=== PATIENT | male | born 1975 | race African-American/Black ===

== ENCOUNTER 2021-12-26 19:49 | Emergency (ER) | payer MEDICARE, MEDICAID ==
[~2021-12-26] VITALS: Ht 180.3 cm; Wt 84.0 kg
[2021-12-26 20:04] VITALS: BP 103/67
[2021-12-27] MEDS ORDERED: IBUPROFEN 600MG TABLET PO STA (04:21)
[2021-12-27] MEDS ORDERED: NAPR-681 PO (05:44)
[2021-12-27] MEDS ORDERED: BO1 TP (05:44)
== END 2021-12-27 06:59 | disposition home or self-care (01) ==
LOC: ER 19:49
DX: S00.03XA Contusion of scalp, initial encounter (principal); S00.01XA Abrasion of scalp, initial encounter; S10.93XA Contusion of unspecified part of neck, initial encounter; S00.83XA Contusion of other part of head, initial encounter; Y04.0XXA Assault by unarmed brawl or fight, initial encounter; Y93.89 Activity, other specified; Y92.488 Other paved roadways as the place of occurrence of the external cause
CPT/HCPCS: 99283

== ENCOUNTER 2022-01-13 21:01 | Emergency (ER) | payer MEDICARE, MEDICAID ==
[~2022-01-13] VITALS: Ht 180.3 cm; Wt 82.0 kg
[~2022-01-13 21:01] MED LIST: BO1 TP; NAPR-681 PO
[2022-01-13 22:00] VITALS: BP 139/81
== END 2022-01-13 23:19 | disposition home or self-care (01) ==
LOC: ER 21:01
DX: Z13.9 Encounter for screening, unspecified (principal); Z59.00 Homelessness unspecified
CPT/HCPCS: 99283